=== PATIENT | female | born 1965 | race Caucasian/White ===

== ENCOUNTER → 2016-03-12 | Outpatient (CLI) | payer BC ==
[~2016-03-12] MED LIST: LORA10CA2 PO; OMEP20TA14 PO; PRZC/10 PO
--- NOTE | 2016-03-17 12:41 | MAMMOGRAPHY REPORT ---
THIS REPORT HAS BEEN AMENDED. BILATERAL DIGITAL SCREENING MAMMOGRAM TOMOSYNTHESIS WITH CAD: 03/12/2016 CLINICAL HISTORY: Asymptomatic. Personal history of breast cancer. TECHNIQUE: Bilateral breast tomosynthesis in addition to standard 2D mammography was performed. Cur rent study was also evaluated with a Computer Aided Detection (CAD) system. COMPARISON: Comparison is made to exams dated: 08/09/2012 mammogram, 08/06/2011 mammogram, 07/31/2010 m ammogram, 08/12/2010 mammogram, 08/12/2010 ultrasound, and 08/11/2011 mammogram - [facility]. BREAST COMPOSITION: There are scattered areas of fibroglandular density in both breasts. There hav e been mild involutional changes comparing to the 2013 mammograms. FINDINGS: There is expected architectural distortion with associated fat necrosis in the 12:00 left breast, at the site of prior lumpectomy. Additional surgical clips project over the left axillary t ail, likely from lymph node sampling. There are scattered benign coarse calcifications. No new bryan picious mass, architectural distortion or cluster of microcalcifications is seen. IMPRESSION: ACR BI-RADS CATEGORY 1: NEGATIVE Expected post therapeutic changes in the left breast, without mammographic evidence of malignancy bi laterally. A 1 year screening mammogram is recommended. The patient will receive written notificati on of the results. Approximately 10% of breast cancers are not detected with mammography. A negative mammographic repor t should not delay biopsy if a clinically suggestive mass is present. Lacey Alcantara M.D. ay/:03/16/2016 15:50:06 Personnel Director: Shante GARDINER(R)(M), [facility] letter sent: Normal 1/2 BI-RADS Code: ACR BI-RADS Category 1: Negative AMENDMENT: 04/01/2016 Lacey Alcantara M.D. More recent prior mammograms from [facility] became available for review, dated 02/13/2013, 08/29/2013, 02/09/2014, 08/22/2014. There has been decreasing trabecular edema of the left breast c ompared to the 2015 exam. Persistent mild skin thickening. Expected architectural distortion in th e left breast and axillary tail, with multiple surgical clips remaining in place. Dystrophic calcif ication at the surgical site in the 12:00 left breast is increasing compared to the 2015 exam. No n ew suspicious mass, architectural distortion or new cluster of suspicious microcalcifications are id entified bilaterally. Recommend routine bilateral mammography in one year. Amended BI-RADS: ACR BI-RADS Category 2: Benign letter sent: Normal /2
== END | disposition home or self-care (01) ==
LOC: C.MAMM 08:45
PROVIDERS: ATTEND Family Medicine
DX: Z12.31 Encounter for screening mammogram for malignant neoplasm of breast (principal); Z85.3 Personal history of malignant neoplasm of breast; Z08 Encounter for follow-up examination after completed treatment for malignant neoplasm

== ENCOUNTER → 2017-03-12 | Outpatient (CLI) | payer BC, OTHER ==
--- NOTE | 2017-03-12 11:05 | DIAGNOSTIC IMAGING REPORT ---
R ELBOW MIN 3 VIEWS CLINICAL HISTORY: RIGHT LATERAL EPICONDYLITIS COMPARISON: None. DISCUSSION: The bones and joint spaces appear intact. There is no evidence of fracture, dislocation or bony disease. There is no evidence for soft tissue swelling. IMPRESSION: Negative study. The above report was generated using voice recognition software. It may contain grammatical, syntax or spelling errors. Electronically signed by: Jose Angel Munoz M.D. 03/12/2017 11:04 AM Dictated Date/Time: 03/12/2017 11:04 AM
== END | disposition home or self-care (01) ==
LOC: C.RDSM 16:19
PROVIDERS: ATTEND Internal Medicine
DX: M77.11 Lateral epicondylitis, right elbow (principal)

== ENCOUNTER → 2017-03-15 | Outpatient (CLI) | payer OTHER ==
--- NOTE | 2017-03-16 07:47 | MAMMOGRAPHY REPORT ---
BILATERAL DIGITAL SCREENING MAMMOGRAM TOMOSYNTHESIS WITH CAD: 03/15/2017 CLINICAL HISTORY: Asymptomatic. Personal history of breast cancer. TECHNIQUE: Breast tomosynthesis in addition to standard 2D mammography was performed. Current study was also evaluated with a Computer Aided Detection (CAD) system. COMPARISON: Comparison is made to exams dated: 03/12/2016 mammogram - [facility], mammogram, 02/09/2014 mammogram, 08/29/2013 mammogram, 02/23/2013 mammogram - [facility] and 08/09/2012 mammogram - [facility]. BREAST COMPOSITION: There are scattered areas of fibroglandular density in both breasts. There are thin involutional changes comparing to more remote prior mammograms. FINDINGS: Expected architectural distortion, dystrophic calcification and surgical clips are stable i n the left breast. There is stable nodular asymmetry in the superior anterior right breast on the ML O view and scattered benign calcifications bilaterally. No new suspicious spiculated or irregular ma ss, architectural distortion or cluster of microcalcifications is seen. IMPRESSION: ACR BI-RADS CATEGORY 1: NEGATIVE There is no mammographic evidence of malignancy. A 1 year screening mammogram is recommended. The pa tient will receive written notification of the results. Approximately 10% of breast cancers are not detected with mammography. A negative mammographic report should not delay biopsy if a clinically suggestive mass is present. Lacey Alcantara M.D. ay/:03/15/2017 16:06:37 Automobile Upholsterer: Shante GARDINER(R)(M), [facility] letter sent: Normal 1/2 BI-RADS Code: ACR BI-RADS Category 1: Negative
== END | disposition home or self-care (01) ==
LOC: C.MAMM 08:44
PROVIDERS: ATTEND Family Medicine
DX: Z12.31 Encounter for screening mammogram for malignant neoplasm of breast (principal); Z85.3 Personal history of malignant neoplasm of breast

== ENCOUNTER → 2017-07-06 | Outpatient (CLI) | payer OTHER ==
--- NOTE | 2017-07-06 12:47 | MAMMOGRAPHY REPORT ---
UNILATERAL LEFT DIGITAL DIAGNOSTIC MAMMOGRAM TOMOSYNTHESIS WITH CAD AND TARGETED LEFT ULTRASOUND: 07/06 CLINICAL HISTORY: Woman with a personal history of left breast cancer status post breast conservation treatment and left axillary lymph node sampling presents with a few month history of left axillary, upper outer quadrant breast and midaxillary line tenderness and swelling of the left upper extremity. The patient reports a prior history of blood clots. TECHNIQUE: A left MLO 2D and tomosynthesis image was obtained. Current study was also evaluated with a Computer Aided Detection (CAD) system. COMPARISON: Comparison is made to exams dated: 03/15/2017 mammogram, 03/12/2016 mammogram - [facility], 08/22/2014 mammogram, 08/29/2013 mammogram, and 02/23/2013 mammogram - [facility]. BREAST COMPOSITION: There are scattered areas of fibroglandular density in the left breast. FINDINGS: A square-shaped pain marker overlies the left axilla, denoting the area of worst pain point ed out by the patient. No obvious new mass, lymph node, asymmetry or other suspicious abnormality is seen within the area of pain. 2 linear scar markers overlie the left breast. There are stable surgical clips projecting over the s uperior posterior left breast and pectoralis muscle on the MLO view. There are 2 surgical clips in t he central left breast. Anterior to the surgical clips is an ovoid lucency with associated reticular calcification, compatible with fat necrosis at the surgical site. No new suspicious masses, develop ing asymmetries, unexpected architectural distortion or cluster of microcalcifications is seen. Targeted ultrasound was performed in the areas of concern and tenderness pointed out by the patient. In the left axilla, a few morphologically normal lymph nodes within cortices are identified. The le ft axillary vein demonstrates isoechoic internal echoes and areas of patchy blood flow, somewhat near the area of concern reported by the patient. In some areas, uniform venous Doppler flow is detected in other areas there is no flow detected. It is unclear whether this could be due to technical para meters or if there is a possible thrombus, which could also explain the left upper extremity swelling . Therefore, recommend further characterization with a dedicated left upper extremity venous Doppler ultrasound to exclude DVT. Throughout the remainder of the upper outer quadrant of the left breast including the midaxillary line which was evaluated with targeted ultrasound, there is no other suspic ious solid or cystic mass. IMPRESSION: ACR BI-RADS CATEGORY 2: BENIGN, TARGETED ULTRASOUND ACR BI-RADS CATEGORY 2: BENIGN 1. There is no mammographic or targeted sonographic evidence of malignancy in the left breast. No wilson spicious left axillary lymphadenopathy is identified. There are stable postsurgical changes in the l eft breast and axilla. 2. While assessing the left axilla, the left axillary vein is identified which contains internal ech oes and patchy Doppler flow. Although this could simply represent slow flow, thrombus cannot be comp letely excluded. Definitive characterization with a dedicated left upper extremity venous Doppler ul trasound to rule out DVT is recommended. These results and recommendations were discussed with the patient at the time of the exam. Otherwise , recommend routine screening mammograph, due in March 2018. Approximately 10% of breast cancers are not detected with mammography. A negative mammographic report should not delay biopsy if a clinically suggestive mass is present. Lacey Alcantara M.D. ay/:07/06/2017 11:23:30 Filtration Plant Operator: Yancy GARDINER(Hussain)(Nga), [facility] letter sent: Normal 1/2 BI-RADS Code: ACR BI-RADS Category 2: Benign Ultrasound BI-RADS: ACR BI-RADS Category 2: Benign
== END | disposition home or self-care (01) ==
LOC: C.MAMM 10:41
PROVIDERS: ATTEND Family Medicine
DX: M79.622 Pain in left upper arm (principal); Z85.3 Personal history of malignant neoplasm of breast